=== PATIENT | female | born 1960 | race Caucasian/White ===

== ENCOUNTER → 2017-11-03 10:14 | Outpatient (REF) | payer BC, SELFPAY ==
[2017-11-04 11:52] LABS: Hepatitis C Ab w Rflx HCV PCR Negative (NEGAT)
== END ==
LOC: NCHCN 10:14
PROVIDERS: PCP Nurse Practitioner Family; Visit Provider Nurse Practitioner Family
DX: Z00.00 Encounter for general adult medical examination without abnormal findings (principal); E11.9 Type 2 diabetes mellitus without complications; I10 Essential (primary) hypertension; M54.5 Low back pain; E66.3 Overweight
CPT/HCPCS: 86803

== ENCOUNTER 2018-05-08 09:55 | Outpatient (REF) | payer BC, SELFPAY ==
[2018-05-08 13:37] LABS: ALT 33 U/L (12-78); AST 20 U/L (15-37); Albumin 4.1 g/dL (3.4-5.0); Alkaline Phosphatase 86 U/L (46-116); Anion Gap 9.7 mmol/L (3-11); BUN 24 mg/dL (7-18); Bilirubin, Total 0.5 mg/dL (0.2-1.0); CO2 29.3 mmol/L (21.0-32.0); CREATININE 1.02 mg/dL (0.55-1.02); Calcium 9.7 mg/dL (8.5-10.1); Chloride 102 mmol/L (98-107); Cholesterol 238 mg/dL (50-200); Estimated GFR 55.47 (mL/min/1.73m2); Glucose 136 mg/dL (70-100); HDL Cholesterol 51 mg/dL (40-60); LDL CHOLESTEROL 172 mg/dL (<100); Potassium 4.1 mmol/L (3.5-5.1); Sodium 141 mmol/L (136-145); Total Protein 8.1 g/dL (6.4-8.2); Triglyceride 91 mg/dL (30-150)
== END 2018-05-08 10:15 ==
LOC: NCHCN 09:55
PROVIDERS: PCP Nurse Practitioner Family; Visit Provider Nurse Practitioner Family
DX: E11.9 Type 2 diabetes mellitus without complications (principal); M54.5 Low back pain; I10 Essential (primary) hypertension; E66.3 Overweight
CPT/HCPCS: 80053; 80061; 83721

== ENCOUNTER 2018-06-15 08:13 | Outpatient (REF) | payer BC, SELFPAY ==
[2018-06-15 13:32] LABS: Cholesterol 148 mg/dL (50-200); HDL Cholesterol 41 mg/dL (40-60); LDL CHOLESTEROL 87 mg/dL (<100); Triglyceride 148 mg/dL (30-150)
[2018-06-15 21:21] LABS: ALT 36 U/L (12-78); AST 24 U/L (15-37); Albumin 4.1 g/dL (3.4-5.0); Alkaline Phosphatase 80 U/L (46-116); Anion Gap 11.7 mmol/L (3-11); BUN 15 mg/dL (7-18); Bilirubin, Total 0.6 mg/dL (0.2-1.0); CO2 27.3 mmol/L (21.0-32.0); CREATININE 1.03 mg/dL (0.55-1.02); Calcium 9.4 mg/dL (8.5-10.1); Chloride 105 mmol/L (98-107); Estimated GFR 54.85 (mL/min/1.73m2); Glucose 121 mg/dL (70-100); Potassium 4.8 mmol/L (3.5-5.1); Sodium 144 mmol/L (136-145); Total Protein 7.5 g/dL (6.4-8.2)
== END 2018-06-15 08:33 ==
LOC: NCHCN 08:13
PROVIDERS: PCP Nurse Practitioner Family; Visit Provider Nurse Practitioner Family
DX: E11.9 Type 2 diabetes mellitus without complications (principal); I10 Essential (primary) hypertension
CPT/HCPCS: 80053; 80061; 83721

== ENCOUNTER 2018-06-19 01:38 | Outpatient (CLI) | payer BC, SELFPAY ==
--- NOTE | 2018-06-19 07:42 | DI.MAMMO_ITS ---
SYMPTOMS/DIAGNOSIS: SCREENING, Z12.39 MAMMOGRAMS: Mammograms were interpreted according to the usual protocol including computer analysis with CAD system, tomosynthesis and C view imaging. Comparison examinations are from [id number]. Since the prior examinations, the patient has undergone bilateral breast reduction surgeries. Postsurgical changes are seen in both breasts. No suspicious masses or microcalcifications are seen. The skin and axillae are within normal limits. IMPRESSION: No definite evidence for malignancy status post bilateral breast reduction. Yearly mammography is recommended. Category 2, breast density B. If there are more recent postreduction mammograms available, they should be submitted and an Addendum will be issued at that time. SA ASSESSMENT OF FINDINGS: Negative with benign findings. Category 2. Patient will receive a letter notifying them of these results. BI-RADS category B. There are scattered areas of fibroglandular density.
== END 2018-06-19 01:58 ==
PROVIDERS: PCP Nurse Practitioner Family; Visit Provider Nurse Practitioner Family
DX: Z12.31 Encounter for screening mammogram for malignant neoplasm of breast (principal); Z98.890 Other specified postprocedural states
CPT/HCPCS: 77063; 77067

== ENCOUNTER 2019-05-11 10:06 | Outpatient (REF) | payer BC, SELFPAY ==
[2019-05-11 12:14] LABS: ALT 41 U/L (14-59); AST 23 U/L (15-37); Albumin 4.3 g/dL (3.4-5.0); Alkaline Phosphatase 88 U/L (46-116); Anion Gap 12.4 mmol/L (3-11); BUN 14 mg/dL (7-18); Bilirubin, Total 0.5 mg/dL (0.2-1.0); CO2 25.6 mmol/L (21.0-32.0); Chloride 104 mmol/L (98-107); Estimated GFR 56.56 (mL/min/1.73m2); Glucose 129 mg/dL (74-106); Potassium 4.1 mmol/L (3.5-5.1); Sodium 142 mmol/L (136-145); Total Protein 7.8 g/dL (6.4-8.2)
== END 2019-05-11 10:26 ==
LOC: NCHCN 10:06
PROVIDERS: PCP Nurse Practitioner Family; Visit Provider Nurse Practitioner Family
DX: I10 Essential (primary) hypertension (principal); E11.9 Type 2 diabetes mellitus without complications; J06.9 Acute upper respiratory infection, unspecified; E66.3 Overweight
CPT/HCPCS: 80053

== ENCOUNTER 2019-08-23 02:01 | Outpatient (CLI) | payer BC, SELFPAY ==
--- NOTE | 2019-08-23 | DI.MAMMO_ITS ---
EXAM: MAMMO SCREENING CLINICAL HISTORY: SCREENING, Z12.39 TECHNIQUE: Mammograms were interpreted according to the usual protocol including computer analysis w [employer] CAD system, tomosynthesis and C-view imaging. COMPARISON: FINDINGS: The breasts are of moderate density. Patient has reportedly had prior bilateral reduction mammoplast y. No dominant mass seen in either breast. There are areas of post surgical scarring bilaterally. Mult iple dystrophic calcifications are seen bilaterally, there are areas of new coarse calcification of t he right breast and some areas of coarse calcification of the left breast have resolved. No suspicio us clumped of microcalcification seen. Follow-up examination is requested in 12 months to re-evaluat e the new areas of coarse calcification. No other significant change seen IMPRESSION: No specific evidence of malignancy at this time. Follow-up mammogram requested in 12 months to re-ev aluate probably benign new right breast calcifications. Category: BI-RADS Cat 2 - Benign Findings Breast Density - Category B - Scattered areas of fibroglandular density:
== END 2019-08-23 02:21 ==
PROVIDERS: PCP Nurse Practitioner Family; Visit Provider Nurse Practitioner Family
DX: Z12.31 Encounter for screening mammogram for malignant neoplasm of breast (principal); R92.1 Mammographic calcification found on diagnostic imaging of breast
CPT/HCPCS: 77063; 77067

== ENCOUNTER 2020-03-09 10:27 | Outpatient (CLI) | payer OTHER, BC, SELFPAY ==
--- NOTE | 2020-03-09 | DI.RAD_ITS ---
EXAM: XR FOREARM RT CLINICAL HISTORY: RT ARM PAIN, M79.601. TECHNIQUE: 2D digital imaging was performed. COMPARISON: CR XR HUMERUS RT from 03/09/2020 FINDINGS: There is a subtle radial head-neck fracture. Recommend dedicated elbow views including a Coyles view IMPRESSION: Subtle radial head-neck fracture. DATA REPOSITORY: RADIATION DOSE DELIVERED:
--- NOTE | 2020-03-09 | DI.RAD_ITS ---
EXAM: XR HUMERUS RT CLINICAL HISTORY: RT ARM PAIN, M79.601. TECHNIQUE: 2D digital imaging was performed. COMPARISON: No exams were available for comparison FINDINGS: There is a fracture of the humeral neck with mild impaction. There is also a fracture of the radial head. IMPRESSION: Fractures as described above DATA REPOSITORY: RADIATION DOSE DELIVERED:
--- NOTE | 2020-03-09 | DI.RAD_ITS ---
EXAM: XR WRIST RT COMPLETE CLINICAL HISTORY: RT ARM PAIN, M79.601. TECHNIQUE: 2D digital imaging was performed. COMPARISON: No exams were available for comparison FINDINGS: There are no fractures of distal radius and ulna nor of the scaphoid and no evidence of carpal disloc ation. On the lateral view there is some calcifications noted on the volar aspect of the anterior of the proximal carpal row, possibly significant. Do not have the appearance of typical fracture fragm ents. Interosseous distances are normal. No erosions. No radiopaque foreign body IMPRESSION: No obvious acute fracture evident. Soft tissue calcifications evident. If clinically indicated foll ow-up MRI can be performed. DATA REPOSITORY: RADIATION DOSE DELIVERED:
--- NOTE | 2020-03-09 | DI.RAD_ITS ---
EXAM: XR SHOULDER RT COMPLETE 2+V CLINICAL HISTORY: RT ARM PAIN, M79.601. TECHNIQUE: 2D digital imaging was performed. COMPARISON: No exams were available for comparison FINDINGS: There is evidence of previous shoulder surgery, probably rotator cuff. There is mildly impacted fracture of the humeral head-neck. Also some degenerative change in glenohu meral joint. No dislocation evident. No obvious fractures in the adjacent rib cage. IMPRESSION: Right humeral head neck fracture with mild impaction. DATA REPOSITORY: RADIATION DOSE DELIVERED:
== END 2020-03-09 10:47 ==
PROVIDERS: PCP Nurse Practitioner Family; Visit Provider Internal Medicine
DX: M79.601 Pain in right arm (principal); S42.301A Unspecified fracture of shaft of humerus, right arm, initial encounter for closed fracture; S52.121A Displaced fracture of head of right radius, initial encounter for closed fracture
CPT/HCPCS: 73030; 73060; 73090; 73110

== ENCOUNTER 2020-03-22 08:21 | Outpatient (CLI) | payer OTHER, BC, SELFPAY ==
--- NOTE | 2020-03-22 08:15 | DI.RAD_ITS ---
EXAM: XR HUMERUS RT CLINICAL HISTORY: follow up TECHNIQUE: COMPARISON: CR XR FOREARM RT from 03/09/2020 CR XR FOREARM RT from 03/09/2020 CR XR SHOULDER RT COMPLETE 2+V from 03/09/2020 CR XR HUMERUS RT from 03/09/2020 CR XR ELBOW RT COMPLETE from 03/22/2020 FINDINGS: Three views of the humerus and three views of the elbow are interpreted in conjunction. Previously d escribed proximal humeral fracture is again noted with no gross interval change in alignment of the f racture fragments in comparison with prior examination March 09. Previously described fracture of the radial head is also again noted and is more clearly visible on the current examination with 1- 2 millimeter displacement at the fracture site. No other significant change is seen. IMPRESSION: RADIATION DOSE DELIVERED: Total DLP
== END 2020-03-22 08:41 ==
PROVIDERS: PCP Nurse Practitioner Family; Referring Provider Nurse Practitioner Family; Visit Provider Physician Assistant Surgical
DX: S42.201A Unspecified fracture of upper end of right humerus, initial encounter for closed fracture (principal); S52.121A Displaced fracture of head of right radius, initial encounter for closed fracture
CPT/HCPCS: 73060; 73080

== ENCOUNTER 2020-04-05 12:48 | Outpatient (CLI) | payer OTHER, SELFPAY ==
--- NOTE | 2020-04-05 09:30 | DI.RAD_ITS ---
EXAM: XR SHOULDER RT COMPLETE 2+V CLINICAL HISTORY: F/u. TECHNIQUE: 2D digital imaging was performed. COMPARISON: CR XR SHOULDER RT COMPLETE 2+V from 03/09/2020 FINDINGS: Again noted is the previously described mildly impacted fracture of the humeral head-neck. This exhi bits very little if any significant radiographic change. Fracture line still faintly visible. Mild degenerative changes in the glenohumeral joint are again noted. There is fastener device in the harshal ral head again noted related to prior surgery. IMPRESSION: DATA REPOSITORY: RADIATION DOSE DELIVERED:
--- NOTE | 2020-04-05 09:30 | DI.RAD_ITS ---
EXAM: XR ELBOW RT LIMITED CLINICAL HISTORY: F/u. TECHNIQUE: 2D digital imaging was performed. COMPARISON: CR XR ELBOW RT COMPLETE from 03/22/2020 FINDINGS: Again noted is a radial head fracture. Fracture line is still evident. There is a small step at the fracture site in the radial head again noted. This does not appear to have increased in size since. No other fractures identified. No obvious joint effusion. IMPRESSION: DATA REPOSITORY: RADIATION DOSE DELIVERED:
== END 2020-04-05 13:08 ==
PROVIDERS: PCP Nurse Practitioner Family; Visit Provider Student in an Organized Health Care Education/Training Program
DX: M19.011 Primary osteoarthritis, right shoulder (principal); S42.291A Other displaced fracture of upper end of right humerus, initial encounter for closed fracture; S52.121A Displaced fracture of head of right radius, initial encounter for closed fracture
CPT/HCPCS: 73030; 73070

== ENCOUNTER 2020-05-10 08:17 | Outpatient (CLI) | payer OTHER, SELFPAY ==
--- NOTE | 2020-05-10 10:00 | DI.RAD_ITS ---
EXAM: XR SHOULDER RT COMPLETE 2+V CLINICAL HISTORY: f/u fracture. TECHNIQUE: 2D digital imaging was performed. COMPARISON: CR XR SHOULDER RT COMPLETE 2+V from 04/05/2020 FINDINGS: Again noted is the previously described mildly impacted fracture of the humeral head-neck. Fracture line is still visible. No further displacement. No dislocation of the glenohumeral joint. Fastener in the humeral head from prior surgery is again noted. IMPRESSION: DATA REPOSITORY: RADIATION DOSE DELIVERED:
--- NOTE | 2020-05-10 10:15 | DI.RAD_ITS ---
EXAM: XR ELBOW RT LIMITED CLINICAL HISTORY: f/u fracture. TECHNIQUE: 2D digital imaging was performed. COMPARISON: CR XR ELBOW RT LIMITED from 04/05/2020 FINDINGS: The appearance of the radial head fracture is unchanged from 04/05/2020. Fracture line is still evid ent and there is a small step at the fracture site evident, unchanged. No obvious joint effusion. IMPRESSION: DATA REPOSITORY: RADIATION DOSE DELIVERED:
== END 2020-05-10 08:18 | disposition home or self-care (01) ==
LOC: DIORS 05-11 08:17
PROVIDERS: PCP Nurse Practitioner Family; Visit Provider Student in an Organized Health Care Education/Training Program
DX: S52.121D Displaced fracture of head of right radius, subsequent encounter for closed fracture with routine healing (principal); S42.291D Other displaced fracture of upper end of right humerus, subsequent encounter for fracture with routine healing
CPT/HCPCS: 73030; 73070

== ENCOUNTER 2020-06-28 10:22 | Outpatient (CLI) | payer OTHER, SELFPAY ==
--- NOTE | 2020-06-28 09:30 | DI.RAD_ITS ---
EXAM: XR SHOULDER RT COMPLETE 2+V CLINICAL HISTORY: f/u TECHNIQUE: 2D digital imaging was performed. COMPARISON: CR XR SHOULDER RT COMPLETE 2+V from 05/10/2020 FINDINGS: Continued healing of the proximal humeral fracture. Prior rotator cuff surgery. Degenerative change s of the glenohumeral and AC joints. No new abnormalities are seen IMPRESSION: Healing proximal humeral fracture.
--- NOTE | 2020-06-28 09:48 | DI.RAD_ITS ---
EXAM: XR ELBOW RT COMPLETE INDICATION: elbow pain. COMPARISON: CR XR ELBOW RT LIMITED from 05/10/2020 TECHNIQUE: 2D digital imaging was performed. FINDINGS: No change in alignment of radial head fracture. No new abnormalities seen. DATA REPOSITORY: RADIATION DOSE DELIVERED:
== END 2020-06-28 10:23 | disposition home or self-care (01) ==
LOC: DIORS 10:23
PROVIDERS: PCP Nurse Practitioner Family; Referring Provider Nurse Practitioner Family; Visit Provider Student in an Organized Health Care Education/Training Program
DX: S42.291D Other displaced fracture of upper end of right humerus, subsequent encounter for fracture with routine healing (principal); S52.121D Displaced fracture of head of right radius, subsequent encounter for closed fracture with routine healing
CPT/HCPCS: 73030; 73080

== ENCOUNTER 2020-08-08 09:43 | Outpatient (REF) | payer BC, SELFPAY ==
--- NOTE | 2020-08-08 08:40 | PAPFT_PTH ---
PATIENT: Marci Muñiz I LOC: [facility]#:[id number] AGE/SX: 59/F ROOM: RE08/08/[address]: Nelsy Bautista : 1960 BED: DIS: 08/08/2020 SPEC #: [id number] RECD: 08/08/20 12:48 STATUS: RICK RESierra #: [id number] SCOTT: 08/08/20 08:[address]: Nelsy Bautista DEPT: [facility] Cytology RECD BY: Rachel Liao Tissues: 1 - CX/ENDOCX FOR PAP SMEARS Procedures: PAP THIN PREP/UVM Screening HPV DNA PROBE Comments: [id number]
[2020-08-08 15:32] LABS: ALT 38 U/L (14-59); AST 23 U/L (15-37); Albumin 4.2 g/dL (3.4-5.0); Alkaline Phosphatase 87 U/L (46-116); Anion Gap 8.1 mmol/L (3-11); BUN 20 mg/dL (7-18); Bilirubin, Total 0.5 mg/dL (0.2-1.0); CO2 27.9 mmol/L (21.0-32.0); Calcium 9.4 mg/dL (8.5-10.1); Chloride 105 mmol/L (98-107); Estimated GFR 56.37 (mL/min/1.73m2); Glucose 153 mg/dL (74-106); Potassium 4.2 mmol/L (3.5-5.1); Sodium 141 mmol/L (136-145); Total Protein 7.7 g/dL (6.4-8.2)
== END 2020-08-08 09:44 | disposition home or self-care (01) ==
LOC: NCHCN 09:43
PROVIDERS: PCP Nurse Practitioner Family; Visit Provider Nurse Practitioner Family
DX: E11.9 Type 2 diabetes mellitus without complications (principal); I10 Essential (primary) hypertension; Z00.00 Encounter for general adult medical examination without abnormal findings; E66.3 Overweight; Z12.4 Encounter for screening for malignant neoplasm of cervix; Z01.419 Encounter for gynecological examination (general) (routine) without abnormal findings; Z11.51 Encounter for screening for human papillomavirus (HPV)
CPT/HCPCS: 80053; 88142; 87624

== ENCOUNTER 2020-08-24 00:58 | Outpatient (CLI) | payer BC, SELFPAY ==
--- NOTE | 2020-08-24 08:55 | DI.MAMMO_ITS ---
Exam(s) MAMMO SCREENING EXAM: MAMMO SCREENING CLINICAL HISTORY: SCREENING, Z12.39 TECHNIQUE: Bilateral full field digital CC and MLO mammographic images were obtained with 3D tomosyn thesis and utilizing computer aided detection (CAD). COMPARISON: Available for comparison. FINDINGS: Masses/Architectural Distortion: Postsurgical changes of bilateral breast reduction mammoplasty is no millie. Microcalcifications: No suspicious pleomorphic-type are seen. Coarse calcifications are seen in the r ight breast. Skin Thickening/Nipple Retraction: None. IMPRESSION: 1. No significant interval change with no specific features of malignancy noted. 2. Postsurgical changes are seen in both breasts. 3. Unless there is more urgent need, screening mammography is recommended, as per [employer] guidelines. BI-RADS Category 2 - Benign Findings Breast Density - Category B - Scattered areas of fibroglandular density Breast density category C or D implies that the patient has dense breast tissue. Dense breast tissue is very common and is not abnormal but dense breast tissue can make it harder to find cancer on a ma mmogram. Also, dense breast tissue may increase their breast cancer risk. This information about the result of the mammogram report was provided to the patient to raise their awareness. Use this report when you speak with the patient about their risks for breast cancer, which includes their family hist ory. At that time, you may recommend for more screening tests (Ultrasound or MRI) as they might be us eful based on their risk. A negative radiographic report should not delay biopsy if a dominant or clinically suspicious mass is present. Up to ten percent of cancers are not identified on mammography. A negative report may reinforce clinical impression. Adenosis and dense breasts may obscure an underlying neoplasm. False positive reports average 6 to 10%. Patient will receive a letter notifying them of these results.
== END 2020-08-24 01:18 ==
PROVIDERS: PCP Nurse Practitioner Family; Visit Provider Nurse Practitioner Family
DX: Z12.31 Encounter for screening mammogram for malignant neoplasm of breast (principal); Z98.890 Other specified postprocedural states
CPT/HCPCS: 77063; 77067

== ENCOUNTER 2021-08-09 10:17 | Outpatient (REF) | payer BC, SELFPAY ==
[2021-08-09 14:20] LABS: ALT 37 U/L (14-59); AST 20 U/L (15-37); Albumin 4.3 g/dL (3.4-5.0); Alkaline Phosphatase 88 U/L (46-116); Anion Gap 7.9 mmol/L (3-11); BUN 18 mg/dL (7-18); Bilirubin, Total 0.7 mg/dL (0.2-1.0); CO2 30.1 mmol/L (21.0-32.0); Calcium 9.3 mg/dL (8.5-10.1); Chloride 106 mmol/L (98-107); Estimated GFR 56.18 (mL/min/1.73m2); Glucose 151 mg/dL (74-106); Potassium 5.1 mmol/L (3.5-5.1); Sodium 144 mmol/L (136-145); Total Protein 7.8 g/dL (6.4-8.2)
== END 2021-08-09 10:18 | disposition home or self-care (01) ==
LOC: NCHCN 10:17
PROVIDERS: PCP Nurse Practitioner Family; Visit Provider Nurse Practitioner Family
DX: I10 Essential (primary) hypertension (principal); E11.9 Type 2 diabetes mellitus without complications; E66.3 Overweight
CPT/HCPCS: 80053

== ENCOUNTER → 2022-02-25 02:19 | Outpatient (CLI) | payer BC, SELFPAY ==
--- NOTE | 2022-02-25 | DI.MAMMO_ITS ---
Exam(s) MAMMO SCREENING EXAM: MAMMO SCREENING CLINICAL HISTORY: SCREENING, Z12.39 TECHNIQUE: Mammograms were interpreted according to the usual protocol including computer analysis w [employer] CAD system, tomosynthesis and C-view imaging. COMPARISON: No exams were available for comparison FINDINGS: The breasts are composed of scattered fibroglandular densities, Breast Density category B. No suspicious masses or suspicious microcalcifications are seen. Patient is status post breast reduc tion. There is bilateral scarring as well as fat necrosis associated calcifications in the right devendra ast. No skin thickening or abnormal axillary lymph nodes are seen. There has been no significant change from prior exams. IMPRESSION: BI-RADS Cat 2 - Benign Findings Yearly screening mammography is recommended. Breast Density - Category B, scattered fibroglandular densities. A negative radiographic report should not delay biopsy if a dominant or clinically suspicious mass is present. Up to ten percent of cancers are not identified on mammography. A negative report may reinforce clinical impression. Adenosis and dense breasts may obscure an underlying neoplasm. False positive reports average 6 to 10%. Patient will receive a letter notifying them of these results.
== END ==
PROVIDERS: PCP Nurse Practitioner Family; Visit Provider Nurse Practitioner Family
DX: Z12.31 Encounter for screening mammogram for malignant neoplasm of breast (principal); N64.1 Fat necrosis of breast; Z98.890 Other specified postprocedural states; R92.1 Mammographic calcification found on diagnostic imaging of breast
CPT/HCPCS: 77063; 77067

== ENCOUNTER 2022-08-26 17:15 | Outpatient (REF) | payer BC, SELFPAY ==
[2022-08-26 16:48] LABS: Anion Gap 9.5 mmol/L (3-11); BUN 21 mg/dL (7-18); CO2 27.5 mmol/L (21.0-32.0); Calcium 9.7 mg/dL (8.5-10.1); Chloride 102 mmol/L (98-107); Glucose 179 mg/dL (74-106); Potassium 4.2 mmol/L (3.5-5.1); Sodium 139 mmol/L (136-145)
== END 2022-08-26 17:16 | disposition home or self-care (01) ==
LOC: NCHCN 17:15
PROVIDERS: PCP Nurse Practitioner Family; Visit Provider Nurse Practitioner Family
DX: I10 Essential (primary) hypertension (principal); E11.9 Type 2 diabetes mellitus without complications; E66.3 Overweight
CPT/HCPCS: 80048

== ENCOUNTER 2022-10-31 12:40 | Day surgery (SDC) | payer BC, SELFPAY ==
--- NOTE | 2022-10-30 18:08 | W.PM.DSUDISC ---
Date of service: 10/31/22 Time of Service: 14:25 Discharge Plan Disposition Patient Disposition: Home Condition: Good Discharge Details Reason For Visit: Screening colonoscopy Attending Provider: Pradip Golden Primary Care Provider: Nelsy Bautista Home Meds and New Rx's Prescriptions: Continued simvastatin 20 mg tablet 20 mg PO QHS lisinopril 10 mg tablet 10 mg PO DAILY metformin 500 mg tablet 1,000 mg PO BID loratadine [Allergy Relief (loratadine)] 10 mg tablet 10 mg PO DAILY aspirin [Aspir-81] 81 MG tablet,delayed release (DR/EC) 81 mg PO DAILY multivitamin 1 EACH capsule 1 ea PO DAILY Discontinued bisacodyl [Dulcolax (bisacodyl)] 5 mg tablet,delayed release (DR/EC) 5 mg PO ONCE Qty: 4 0RF Rx Instructions: Take per colonoscopy instructions provided by ordering providers office polyethylene glycol 3350 17 gram/dose powder 17 g PO ONCE Qty: 238 0RF Rx Instructions: Take per colonoscopy instructions provided by ordering providers office Discharge Instructions Additional Instructions: Marci, we were able to do your colonoscopy today without any trouble. The quality of your prep was excellent. I had great visualization. I did not see anything out of the ordinary. There were no polyps, tumors, diverticulosis, or anything else to worry about. You should have another colonoscopy in 10 years. 1. If tolerated, consume a soft, low fiber diet for 1-2 days. 2[address] Do not drive, drink alcohol, operate machinery, make critical decisions, or do activities that require coordination or balance for 24 hours. 3. Because air was put into your colon during the procedure, expelling air from your rectum (passing gas or farting) is normal. 4. You may not have a bowel movement for 1-3 days because of the colonoscopy prep. This is normal. 5. Go directly to the emergency room if you notice any of the following: Develop chills (warm to touch), or if you have a thermometer and your temperature is above 101 Difficulty breathing or difficultly swallowing Persistent vomiting Severe abdominal pain, other than gas cramps Severe chest pain Black, tarry stools Any bleeding ? exceeding one tablespoon 6. Call your physician if the site where your intravenous was started becomes red, swollen, painful, and warm to touch. 7. Your physician has reviewed your pre-procedure medications. Please continue to take those medications as previously ordered. You will be given specific information/education regarding any changes to your medications before leaving. Stand Alone Forms: Anesthesia Discharge Inst., [place] ([facility]U) Activity:: Activity as Tolerated Diet:: As Tolerated Discharge Orders Discharge Orders: Discharge Order (Routine); Ordered 10/30/22 Ordered By: Pradip Golden DS: Diagnosis Discharge Diagnosis (1) Normal colonoscopy: Status: Acute Asessment and Plan: Second normal screening colonoscopy. Recommend another one in 10 years
--- NOTE | 2022-10-30 18:11 | W.COLOREPORT ---
Date of service: 10/31/22 Time of Service: 14:27 Colonoscopy Report Date of procedure: 10/31/22 Pre-op diagnosis general: Screening colonoscopy Post-op diagnosis procedure note: other (Negative screening colonoscopy) Procedure: Colonoscopy Surgeon: Pradip Golden Anesthesia Type: General:No Airway Estimated blood loss (mL): 0 Pathology: none sent Complications: None Disposition: same day Indications: Marci is 61 years old. She is here for her next screening colonoscopy Prep: Miralax/Dulcolax Procedure Start Time: 14:07 Procedure End Time: 14:22 Retraction Time: 9 Findings: Negative screening colonoscopy Procedure Description: After the induction of monitored anesthetic care, and with the patient in left lateral decubitus position, I began by performing an external anorectal exam.? Perineum and skin were normal, as was the anal verge.? There was no evidence of external hemorrhoids.? Next, I performed a digital rectal exam.? I did not appreciate any abnormal findings.? Next, I advanced a colonoscope into the rectal vault.? I performed retroflexion.? I this appeared normal.? Using insufflation, I then advanced the colonoscope beyond the rectal folds and into the sigmoid colon before advancing towards the cecum.? The quality of the prep was excellent.? The scope was noted to be in the cecum by identification of the ileocecal valve and appendiceal orifice.? I then began withdrawing the colonoscope using repeated irrigation as necessary for full evaluation of the colonic mucosa. ?Once the scope was withdrawn to the level of the rectum, great care was taken to examine portions of the rectal folds.? I did not see any signs of tumors, polyps, or any other pathology in the large intestine. Finally, the scope was withdrawn and the patient was brought to the same-day surgery recovery unit as the anesthetic wore off. ?The findings and instructions were shared with the patient prior to discharge.
--- NOTE | 2022-10-31 10:13 | ANES.PREOP_ITS ---
General Info Date of Service Date Performed: 10/31/22 Height: 5 ft 7 in Weight: 87.997 kg Body Mass Index (BMI): 30.4 Surgical Procedure: Operation Date: 10/31/22 14:50 Proposed Procedure Side Surgeon p Colonoscopy Pradip Golden MD Meds Allergies and Home Medications Allergies Allergy/AdvReac Type Severity Reaction Status Date / Time influenza virus vaccine, Allergy Severe Hives Verified 10/29/22 14:25 specific Latex, Natural Rubber Allergy Severe Hives Verified 10/29/22 14:25 Home Medication Medication Instructions Recorded aspirin 81 mg tablet,delayed 81 mg PO DAILY 06/29/12 release (Aspir-) multivitamin 1 ea PO DAILY 06/29/12 lisinopril 10 mg tablet 10 mg PO DAILY 03/22/20 simvastatin 20 mg tablet 20 mg PO QHS 03/22/20 loratadine 10 mg tablet (Allergy 10 mg PO DAILY 02/18/22 Relief (loratadine)) metformin 500 mg tablet 1,000 mg PO BID 10/24/22 Current Visit Medications: Current Medications Generic Name Dose Route Start Last Admin Trade Name Deyviq PRN Reason Stop Dose Admin Hyoscyamine Sulfate 0.125 mg 10/30/22 18:11 Hyoscyamine 0.125 Mg Sl/Oral/Chew SL 11/29/22 18:10 DIRECTED PRN Ringer's Solution 1,000 mls @ 80 mls/hr 10/31/22 06:00 IV 11/21/22 23:59 INFUSION [facility] IV Miscellaneous Supplies 1 each 10/31/22 06:00 Iv Access IV 11/21/22 23:59 DIRECTED [facility] Ondansetron HCl 4 mg 10/30/22 18:11 Ondansetron 4 Mg/2 Ml Vial IVP 11/29/22 18:10 Q4H PRN PRN Nausea / Vomiting Sodium Chloride 0 ml 10/31/22 06:00 Normal Saline Flush 10 Ml Syr IV 11/21/22 23:59 PRN PRN Sodium Chloride 0 ml 10/31/22 06:00 Normal Saline 10 Ml Vial IJ 11/21/22 23:59 DIRECTED PRN Sterile Water 0 ml 10/31/22 06:00 Water,Injection,Sterile 10 Ml Vial IJ 11/21/22 23:59 DIRECTED PRN PFSH Active Problems Active Problems: Problem Status Onset Code Normal colonoscopy Diverticula of colon K57.30 Tinnitus of both ears H93.13 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 Sensorineural hearing loss (SNHL) of right ear with restricted hearing of left ear H90.A21 Overweight E66.3 Seasonal allergies J30.2 Insect bite W57.XXXA Diabetes E11.9 Hypertension I10 Hearing loss H91.90 Screening for colon cancer Z12.11 Fracture of radial neck, closed S52.133A Fracture of neck of humerus S42.213A Medical History Medical History Diabetes mellitus Surgical History Surgical History History of section History of colonoscopy (~01/2011) Hx of breast reduction, elective Tobacco Smoking/Tobacco Use Status: Former Tobacco Use Alcohol Alcohol Intake: never Substance Use Substance use: Never Substance use type: does not use Vital Signs and Lab Results Vital Signs Most Recent Vital Signs in EMR: Temp Pulse Resp BP Pulse Ox 37.1 C 84 18 173/85 H 98 10/31/22 12:50 10/31/22 12:50 10/31/22 12:50 10/31/22 12:50 10/31/22 12:50 Lab Results Blood Type / Crossmatch: No Data to Display Complete Blood Count: No Data to Display Complete Metabolic Panel: No Data to Display Liver Function Panel: No Data to Display Coagulation Panel: No Data to Display Cardiac Panel: No Data to Display Arterial Blood Gas: No Data to Display Venous Blood Gas: No Data to Display Pancreas Panel: No Data to Display Thyroid Panel: No Data to Display Infectious Disease: No Data to Display Blood Cultures: No Data to Display Toxicology Panel: No Data to Display Anesthesia Assessment and Plan Anesthesia History Personal History: No History of Anesthesia Complications Family History: No Family History of Anesthesia Complications Exercise Tolerance Exercise Tolerance: Metabolic Equivalents>4 Cardiac & Pulmonary Exam Cardiac Exam: Normal S1/S2 Heart Sounds Pulmonary Exam: Clear Bilateral Breath Sounds Implantable Cardiac Device Does patient have a Pacemaker or an ICD?: No Airway Exam Known Difficult Airway: No Mallampati Class: 3 Mouth Opening: Normal (> 3cm) Thyromental Distance: Greater than 3 cm Neck Range of Motion: Full ROM Neck Circumference: Normal Teeth Condition: Normal Dentition ASA Classification ASA Score: ASA 2 Emergency Case?: No NPO Status NPO Status: NPO Clears >2 hours, Solids >8 hours Anesthesia Plan Resuscitation Status: Full Code Anesthesia Technique: General Anesthesia Airway Planned: Natural Airway Monitors Used: Standard Monitors Preoperative Comments:: 61 yo female for colo. Sig PMHx: HTN, DM, former smoker
[2022-10-31 12:50] VITALS: BP 173/85; PULSE 84; RESP 18; TEMP 37.1; O2SAT 98
[2022-10-31 13:19] VITALS: BMI 30.4
[2022-10-31] MEDS: Lactated Ringers 1,000 ML 80 ML IV (13:20)
[2022-10-31 14:26] VITALS: BP 130/91; PULSE 93; RESP 18; TEMP 36.5; O2SAT 99
--- NOTE | 2022-10-31 14:42 | W.ANESPOSTOP ---
Postoperative Evaluation Date, Time and Location Date Performed: 10/31/22 Time Performed: 14:42 Patient Location: Day Surgery Unit Vital Signs Most Recent Imported Vital Signs: Most Recent Vital Signs Temp Pulse Resp BP Pulse Ox 36.5 C 93 H 18 130/91 H 99 10/31/22 14:26 10/31/22 14:26 10/31/22 14:26 10/31/22 14:26 10/31/22 14:26 Pain Score Most Recent Pain Score: Most Recent Pain Score Pain Level 0 10/31/22 14:26 Assessment Mental Status: Awake (Alert & Oriented to Patient Baseline) Airway and Respiratory Function: Patent airway with normal (patient baseline) respiratory exam Cardiovascular Function: Hemodynamically Stable Hydration Status: Adequately Hydrated Nausea & Vomiting: No Nausea or Vomiting Pain: Pt. Denies Any Pain Peripheral Nerve Block: Patient did not receive a nerve block
[2022-10-31 14:53] VITALS: BP 130/78; PULSE 83; RESP 18; TEMP 36.6; O2SAT 98
== END 2022-10-31 15:10 | disposition home or self-care (01) ==
PROVIDERS: PCP Nurse Practitioner Family; Visit Provider Surgery
PROC: 0DJD8ZZ Inspection of Lower Intestinal Tract, Via Natural or Artificial Opening Endoscopic (ICD-10-PCS; CPT 45378; principal; 2022-10-31 14:45)
DX: Z12.11 Encounter for screening for malignant neoplasm of colon (principal); E11.9 Type 2 diabetes mellitus without complications; I10 Essential (primary) hypertension
CPT/HCPCS: 45378

== ENCOUNTER → 2023-02-27 01:32 | Outpatient (CLI) | payer BC, SELFPAY ==
--- NOTE | 2023-02-27 | DI.MAMMO_ITS ---
Exam(s) MAMMO SCREENING EXAM: MAMMO SCREENING CLINICAL HISTORY: Screeening Z12.39,family h/o breast ca TECHNIQUE: Mammograms were interpreted according to the usual protocol including computer analysis w [employer] CAD system, tomosynthesis and C-view imaging. COMPARISON: 2013 through 2021 FINDINGS: The breasts are composed of scattered fibroglandular densities, Breast Density category B. No suspicious masses or suspicious microcalcifications are seen. An area of fat necrosis is again no millie in the upper outer quadrant of the right breast. Mild bilateral scarring related to prior breast reduction surgery. No skin thickening or abnormal axillary lymph nodes are seen. There has been no significant change from prior exams. IMPRESSION: BI-RADS Category 2 - Negative Mammogram with benign findings. Yearly screening mammography is recomm ended. Breast Density - Category B, scattered fibroglandular densities. A negative radiographic report should not delay biopsy if a dominant or clinically suspicious mass is present. Up to ten percent of cancers are not identified on mammography. A negative report may reinforce clinical impression. Adenosis and dense breasts may obscure an underlying neoplasm. False positive reports average 6 to 10%. Patient will receive a letter notifying them of these results.
== END ==
PROVIDERS: PCP Nurse Practitioner Family; Visit Provider Nurse Practitioner Family
DX: Z12.31 Encounter for screening mammogram for malignant neoplasm of breast (principal); R92.323 Mammographic fibroglandular density, bilateral breasts; Z80.3 Family history of malignant neoplasm of breast
CPT/HCPCS: 77063; 77067

== ENCOUNTER 2023-10-08 08:11 | Outpatient (REF) | payer BC, SELFPAY ==
[2023-10-08 15:38] LABS: Hemoglobin A1C 6.3 % (<5.7)
[2023-10-08 15:49] LABS: Anion Gap 9.6 mmol/L (3-11); BUN 18 mg/dL (7-18); CO2 29.4 mmol/L (21.0-32.0); CREATININE 0.9 mg/dL (0.55-1.02); Calcium 9.5 mg/dL (8.5-10.1); Calculated LDL 113 mg/dL (<100); Chloride 105 mmol/L (98-107); Cholesterol 180 mg/dL (<200); Estimated GFR 71.39 (mL/min/1.73m2); Glucose 127 mg/dL (74-106); HDL Cholesterol 51 mg/dL (40-60); Potassium 5.3 mmol/L (3.5-5.1); Sodium 144 mmol/L (136-145); Triglyceride 80 mg/dL (<150)
== END 2023-10-08 08:12 | disposition home or self-care (01) ==
LOC: NCHCN 08:11
PROVIDERS: PCP Nurse Practitioner Family; Visit Provider Nurse Practitioner Family
DX: Z00.00 Encounter for general adult medical examination without abnormal findings (principal); I10 Essential (primary) hypertension; E11.9 Type 2 diabetes mellitus without complications
CPT/HCPCS: 80048; 80061; 83036

== ENCOUNTER 2023-10-13 13:11 | Outpatient (REF) | payer BC, SELFPAY ==
[2023-10-13 15:38] LABS: Anion Gap 9.2 mmol/L (3-11); BUN 20 mg/dL (7-18); CO2 28.8 mmol/L (21.0-32.0); CREATININE 0.9 mg/dL (0.55-1.02); Chloride 104 mmol/L (98-107); Estimated GFR 71.39 (mL/min/1.73m2); Glucose 102 mg/dL (74-106); Magnesium 1.7 mg/dL (1.8-2.4); Potassium 4.9 mmol/L (3.5-5.1); Sodium 142 mmol/L (136-145); Vitamin B12 487 pg/mL (193-986)
== END 2023-10-13 13:12 | disposition home or self-care (01) ==
LOC: NCHCN 13:11
PROVIDERS: PCP Nurse Practitioner Family; Visit Provider Nurse Practitioner Family
DX: I10 Essential (primary) hypertension (principal); E11.9 Type 2 diabetes mellitus without complications
CPT/HCPCS: 80048; 82607; 83735

== ENCOUNTER 2024-03-01 01:35 | Outpatient (CLI) | payer BC, SELFPAY ==
--- NOTE | 2024-03-01 | DI.DEXA_ITS ---
Exam(s) XR DEXA BONE DENSITY W/WO JAY EXAM: XR DEXA BONE DENSITY W/WO JAY CLINICAL HISTORY: Postmenopausal state, Z78.0-asymptomatic menopausal state TECHNIQUE: Routine DEXA evaluation of the lumbar spine, hip, or forearm. COMPARISON: No exams were available for comparison FINDINGS: Performed on a Hologic unit. Lateral image: No compression fracture evident. Lumbar Spine total T-score: -1.5 Hip total T-score:-1.1 Independent reading at the level of the femoral neck yields T-score of -1.6 Forearm total T-score: -1.3 IMPRESSION: Bone mineral density measures in the osteopenia range. Fracture risk is moderate. Note: Any spine fracture indicates 5x risk for subsequent spine fracture and 2x risk for subsequent h ip fracture. World Health Organization criteria for BMD interpretation classify patients: Normal...... T- Score at or above -1.0 Osteopenic... T- Score between -1.0 and -2.5 Osteoporosis... T-Score at or below -2.5
--- NOTE | 2024-03-01 08:45 | DI.MAMMO_ITS ---
Exam(s) MAMMO SCREENING EXAM: MAMMO SCREENING CLINICAL HISTORY: Screening, Z12.39. TECHNIQUE: Bilateral full field digital CC and MLO mammographic images were obtained with 3D tomosyn thesis and utilizing computer aided detection (CAD). COMPARISON: Prior mammograms were reviewed. This patient underwent bilateral breast reduction surgery in 2016. FINDINGS: Area of asymmetric density in left breast is unchanged from prior postsurgical mammograms. Also unch anged is an area fat necrosis in the lateral aspect of the opposite-right breast. There are no new spiculated masses nor new malignant appearing microcalcification groups. There is no new significant architectural distortion nor skin thickening-retraction. IMPRESSION: Stable benign-appearing findings. No radiographic evidence of malignancy. BI-RADS Category 2 - Benign Findings Breast Density - Category B - Scattered areas of fibroglandular density Breast density Category C or D implies that the patient has dense breast tissue. Dense breast tissue can make it harder to find cancer on a mammogram. Dense breast tissue is also associated with an incr eased risk of breast cancer. This information about the result of the mammogram report was provided to the patient to raise their awareness. Use this report when you speak with the patient about their risks for breast cancer, which includes their family history. At that time, you may recommend additional screening tests (Ultrasoun d or MRI) as these tests may add significant information. A negative radiographic report should not delay biopsy if a dominant or clinically suspicious mass is present. Up to ten percent of cancers are not identified on mammography. A negative report may reinforce clinical impression. Adenosis and dense breasts may obscure an underlying neoplasm. False positive reports average 6 to 10%. Patient will receive a letter notifying them of these results.
== END 2024-03-01 01:55 ==
LOC: DI 01:35
PROVIDERS: PCP Nurse Practitioner Family; Visit Provider Nurse Practitioner Family
DX: Z13.820 Encounter for screening for osteoporosis (principal); Z12.31 Encounter for screening mammogram for malignant neoplasm of breast; Z78.0 Asymptomatic menopausal state; M85.89 Other specified disorders of bone density and structure, multiple sites
CPT/HCPCS: 77063; 77067; 77080

== ENCOUNTER 2024-04-12 11:52 | Outpatient (REF) | payer MEDICARE, SELFPAY ==
[2024-04-12 14:54] LABS: Hemoglobin A1C 6.1 % (<5.7)
== END 2024-04-12 11:53 | disposition home or self-care (01) ==
LOC: NCHCN 11:52
PROVIDERS: PCP Nurse Practitioner Family; Visit Provider Nurse Practitioner Family
DX: E11.9 Type 2 diabetes mellitus without complications (principal)
CPT/HCPCS: 83036; 83735

== ENCOUNTER 2024-10-14 10:52 | Outpatient (REF) | payer MEDICARE, SELFPAY ==
[2024-10-14 15:39] LABS: ALT 27 U/L (14-59); AST 22 U/L (15-37); Albumin 4.4 g/dL (3.4-5.0); Alkaline Phosphatase 69 U/L (46-116); Anion Gap 8.2 mmol/L (3-11); BUN 17 mg/dL (7-18); Bilirubin, Total 0.7 mg/dL (0.2-1.0); CO2 30.8 mmol/L (21.0-32.0); Calcium 9.8 mg/dL (8.5-10.1); Calculated LDL 92 mg/dL (<100); Chloride 104 mmol/L (98-107); Cholesterol 155 mg/dL (<200); Estimated GFR 70.95 (mL/min/1.73m2); Glucose 112 mg/dL (74-106); HDL Cholesterol 47 mg/dL (>or=50); Magnesium 2.1 mg/dL (1.8-2.4); Potassium 4.8 mmol/L (3.5-5.1); Sodium 143 mmol/L (136-145); Total Protein 7.6 g/dL (6.4-8.2); Triglyceride 82 mg/dL (<150)
[2024-10-14 16:56] LABS: Vitamin B12 571 pg/mL (193-986); Vitamin D 25 Total 45 ng/mL (30-100)
== END 2024-10-14 10:53 | disposition home or self-care (01) ==
LOC: NCHCN 10:52
PROVIDERS: PCP Nurse Practitioner Family; Visit Provider Nurse Practitioner Family
DX: M85.80 Other specified disorders of bone density and structure, unspecified site (principal); I10 Essential (primary) hypertension; E11.9 Type 2 diabetes mellitus without complications
CPT/HCPCS: 80053; 80061; 82306; 82607; 83735

== ENCOUNTER → 2025-03-11 00:16 | Outpatient (CLI) | payer MEDICARE, SELFPAY ==
--- NOTE | 2025-03-11 08:50 | DI.MAMMO_ITS ---
Exam(s) MAMMO SCREENING EXAM: MAMMO SCREENING CLINICAL HISTORY: SCREENING, Z12,31, FAMILY H/O BREAST CA TECHNIQUE: Bilateral full field digital CC and MLO mammographic images were obtained with 3D tomosynthesis and utilizing computer aided detection (CAD). COMPARISON: Comparison is made with prior examinations. FINDINGS: The patient has had prior breast reduction surgery. Masses/Architectural Distortion: No suspicious masses or areas of architectural distortion are present. There are stable postsurgical changes in the left breast. There is also stable area of fat necrosis in the right breast. Microcalcifications: No suspicious pleomorphic-type are seen. Skin Thickening/Nipple Retraction: None. IMPRESSION: 1. No significant interval change with no specific features of malignancy noted. 2. Unless there is more urgent need, screening mammography is recommended, as per [place] [employer] guidelines. BI-RADS Category 2 - Benign Findings Breast Density - Category B - There are scattered areas of fibroglandular density. Breast density Category C or D implies that the patient has dense breast tissue. Dense breast tissue can make it harder to find cancer on a mammogram. Dense breast tissue is also associated with an increased risk of breast cancer. This information about the result of the mammogram report was provided to the patient to raise their awareness. Use this report when you speak with the patient about their risks for breast cancer, which includes their family history. At that time, you may recommend additional screening tests (Ultrasound or MRI) as these tests may add significant information. A negative radiographic report should not delay biopsy if a dominant or clinically suspicious mass is present. Up to ten percent of cancers are not identified on mammography. A negative report may reinforce clinical impression. Adenosis and dense breasts may obscure an underlying neoplasm. False positive reports average 6 to 10%. Patient will receive a letter notifying them of these results.
== END ==
PROVIDERS: PCP Nurse Practitioner Family; Visit Provider Nurse Practitioner Family
DX: Z12.31 Encounter for screening mammogram for malignant neoplasm of breast (principal)
CPT/HCPCS: 77063; 77067